=== PATIENT | female | born 1985 | race African-American/Black ===

== ENCOUNTER → 2017-01-29 | Outpatient (CLI) | payer BC | LOC: ULTRA 08:05 | DX: M67.472 Ganglion, left ankle and foot (principal) ==

== ENCOUNTER 2017-08-21 03:47 | Emergency (ER) | payer BC ==
[~2017-08-21] VITALS: Ht 160 cm; Wt 94.8 kg
[2017-08-21] MEDS ORDERED: PRENATAL PO (04:12)
[2017-08-21] MEDS ORDERED: UNKNOWN ANTIBIOTIC (04:12)
[2017-08-21 04:40] LABS: ABSOLUTE NEUTROPHILS 7.6 thou/uL (1.4-8.2); BASOPHILS 0.8 % (0.0-2.0); EOSINOPHILS 0.7 % (0.0-3.0); HEMATOCRIT 39.4 % (37.0-47.0); LYMPHOCYTES 30.3 % (24.0-44.0); MCH 28.5 pg (26.0-34.0); MCV 86.2 fL (80.0-100.0); MONOCYTES 8.8 % (1.0-8.0); PLATELET COUNT 313 thou/uL (150-400); POLYS 59.4 % (36.0-66.0); RBC 4.57 mil/uL (4.20-5.00); RDW 14.5 % (10.5-14.5); WBC 12.7 thou/uL (4.0-11.0)
[2017-08-21 05:17] VITALS: BP 103/63
== END 2017-08-21 05:17 | disposition home or self-care (01) ==
LOC: ER 03:47
PROVIDERS: Emergency Medicine
DX: O20.0 Threatened abortion (principal); Z3A.11 11 weeks gestation of pregnancy